=== PATIENT | female | born 1965 | race African-American/Black ===

== ENCOUNTER 2022-03-23 09:52 | Outpatient (CLI) | payer BC | END 2022-03-23 09:53 | disposition home or self-care (01) | LOC: CSHRAD 09:52 | PROVIDERS: ATTEND Surgery | DX: K21.9 Gastro-esophageal reflux disease without esophagitis (principal); K95.09 Other complications of gastric band procedure; K31.89 Other diseases of stomach and duodenum | CPT/HCPCS: 74220 ==